=== PATIENT | female | born 1970 | race Caucasian/White ===

== ENCOUNTER 2016-12-18 20:33 | Emergency (ER) | payer OTHER ==
[~2016-12-18] VITALS: Ht 167.6 cm; Wt 61.8 kg
[~2016-12-18 20:33] MED LIST: ACET500C5 PO; AMOX1TAB10 PO; ERGO500014 PO; IBUP-1542 PO; MECL25TA2 PO; UDROBDM PO
[2016-12-18 20:36] VITALS: Ht 167.6 cm; Wt 61.8 kg
--- NOTE | 2016-12-18 23:25 | RADRPT ---
PROCEDURE: XR Right Foot. CLINICAL INDICATION: Trauma. Right foot pain. TECHNIQUE: 3 views. Frontal, lateral, and oblique. COMPARISON: None. FINDINGS: There is an acute comminuted nondisplaced fracture of the base of the fifth metatarsal with a transv erse and oblique component. There is mild overlying soft tissue swelling. There is no other fracture and there is no dislocation. The soft tissues and articular surfaces are otherwise normal. There is no lytic or blastic lesion. There is no radiopaque foreign body. IMPRESSION: 1. Acute comminuted nondisplaced fracture of the base of the fifth metatarsal. 2. Mild overlying soft tissue swelling. 3. Otherwise unremarkable images of the right foot. RPTAT: QQ .Landen Hamlin MD, Date Time Electronically viewed and signed by .Landen Hamlin MD, on 12/18/2016 23:24 .R/
[2016-12-18] MEDS ORDERED: HYDR-906 PO (23:51)
[2016-12-18] MEDS ORDERED: NAPR-688 PO (23:51)
--- NOTE | 2016-12-18 23:58 | ERD ---
ER Documentation Chief Complaint Chief Complaint sp ground level fall, right foot pain/ swelling HPI This is a 46-year-old female presenting to the emergency department complaining of right lateral foot pain status post ground level fall that occurred a couple hours prior to being seen. Patient rates the pain as achy, moderate in severity. She states that she cannot ambulate due to the pain and swelling. Denies taking any medications for this ROS All systems reviewed and are negative except as per history of present illness. Medications Home Meds Active Scripts Naproxen* (Naproxen*) 500 Mg Tablet, 500 MG PO BID Y for PAIN, #30 TAB Prov:HADLEY GILLIAM PA-C 12/18/16 Hydrocodone/Acetaminophen (Cuttyhunk 5-325 Tablet) 1 Each Tablet, 1-2 TAB PO Q6H Y for PAIN, #30 TAB Prov:HADLEY GILLIAM PA-C 12/18/16 Guaifenesin-Dextromethorphan* (Robitussin* DM) 100MG/10MG/5ML Syrup, 5 ML PO Q6H Y for COUGH, #120 ML 0 Refills Prov:TASHI MEEKS PA-C 05/31/15 Amox Tr/Potassium Clavulanate (Amox Tr-K Clv 875-125 Mg Tab) 1 Tab Tablet, 1 TAB PO BID, #20 TAB 0 Refills Prov:TASHI MEEKS PA-C 05/31/15 Ibuprofen* (Motrin*) 600 Mg Tab, 600 MG PO Q8, #30 TAB 0 Refills Prov:TASHI MEEKS PA-C 05/31/15 Acetaminophen* (Tylophen*) 500 Mg Capsule, 1 CAP PO Q6H Y for PAIN AND OR ELEVATED TEMP, #30 CAP 0 Refills Prov:TASHI MEEKS PA-C 05/31/15 Meclizine Hcl* (Antivert*) 25 Mg Tablet, 25 MG PO Q6H Y for vertigo, #30 TAB Prov:LIO LOVELL MD 04/08/15 Reported Medications Ergocalciferol* (Drisdol* (Vitamin D2)) 50,000 Unit Capsule, [address]353 UNIT PO Q7D, CAP 04/08/15 Allergies Allergies: Coded Allergies: No Known Allergy (Unverified , 12/18/16) PMhx/Soc Medical and Surgical Hx: pt denies Medical Hx History of Surgery: Yes (thyroid) Anesthesia Reaction: No Hx Neurological Disorder: No Hx Respiratory Disorders: No Hx Cardiac Disorders: No Hx Psychiatric Problems: No Hx Miscellaneous Medical Probl: No Hx Alcohol Use: No Hx Substance Use: No Hx Tobacco Use: Yes Smoking Status: Current every day smoker Physical Exam Vitals Vital Signs Date Time Temp Pulse Resp B/P Pulse Ox O2 Delivery O2 Flow Rate FiO2 12/18/16 20:36 98.8 91 20 135/71 100 Physical Exam General: WD/WN, in no apparent distress, non-toxic appearing HENT: NC/AT Eyes: Conjunctiva normal Neck: Supple Pulm: Clear to auscultation, normal labored breathing; no wheezing/rales/ rhonchi heard CV: [Good capillary refill] GI: Non-distended, no guarding Back: No masses bone tenderness at base of 5th metatarsal Neuro: [plantar reflex intact, patellar reflex intact, +2 pedal pulses bilaterally, sensation intact] Skin: [intact] Psych: [Normal mood] Procedures/MDM This is a 46-year-old female presenting to the emergency department with a fracture of the proximal fifth metatarsal from a ground-level fall that occurred. There is no evidence of displacement, no evidence of dislocation. Patient is neurovascular intact. Patient was placed an orthopedist and given crutches. She is neurovascular intact pre-and posttreatment. Patient was given Cuttyhunk and naproxen for pain I have instructed her to follow-up with an orthopedist as soon as possible in the next couple days. Discussed return to the ER for any worsening symptoms patient understands and agrees with this plan XR right foot 1. Acute comminuted nondisplaced fracture of the base of the fifth metatarsal. 2. Mild overlying soft tissue swelling. 3. Otherwise unremarkable images of the right foot. Departure Diagnosis: Primary Impression: Metatarsal fracture Condition: Stable Patient Instructions: Fracture, Foot Additional Instructions: FOLLOW UP WITH YOUR PRIMARY CARE PHYSICIAN TOMORROW. Return to this facility if you are not improving as expected. Take all medicines as directed. Return to this facility if you are not improving as expected. HADLEY GILLIAM PA-C Dec 18, 2016 23:58
[2016-12-19 01:00] VITALS: BP 124/74; PULSE 81; RESP 18
== END 2016-12-19 01:05 | disposition home or self-care (01) ==
LOC: FTE 20:33
DX: S92.354A Nondisplaced fracture of fifth metatarsal bone, right foot, initial encounter for closed fracture (principal); F17.210 Nicotine dependence, cigarettes, uncomplicated; W18.39XA Other fall on same level, initial encounter; Y92.9 Unspecified place or not applicable
CPT/HCPCS: 73630; Z7502

== ENCOUNTER 2017-09-22 11:44 | Emergency (ER) | END 2017-09-22 13:53 | disposition home or self-care (01) ==